=== PATIENT | male | born 1985 | race Caucasian/White ===

== ENCOUNTER 2018-08-10 11:31 | Emergency (ER) | payer OTHER ==
[2018-08-10] MEDS ORDERED: SODIUM CHLORIDE 0.9% 500 ML IV ONE (11:40)
[2018-08-10] MEDS ORDERED: ONDANSETRON HCL IV 4 MG/2 ML VIAL IV ONE (11:40)
--- NOTE | 2018-08-10 11:46 | Emergency Department Record ---
History of Present Illness - General Chief complaint: Flank Pain Stated complaint: FLANK PAIN Time Seen by Provider: 08/10/18 11:37 Source: Patient Mode of Arrival: Ambulatory Limitations: No limitations - History of Present Illness Initial comments: The patient is here due to a 1 day hx of the acute onset of L flank pain. The pain is sharp and stabbing and does radiate mildly to the L groin and hip area. He has had some nausea and vomiting with the pain. The patient does feel pressure when he has to urinate at times. There has been no hx of similar problems and no hx of kidney stones. The patient is sometimes worse with movement and bending. There is no pain radiating to the legs and no leg numbness or weakness. MD Complaint: Other Onset/Timin -: Days(s) Location: Left flank Severity: Mild Severity scale (1-10): 6 Quality: Sharp Consistency: Constant Improves with: None Worsens with: Urination Reports: Nausea/vomiting - Related Data Sexually active: Yes Previous Rx's Medication Instructions Recorded Naproxen [Naprosyn] 500 mg PO BID #14 tablet. 08/10/18 Allergies Allergy/AdvReac Type Severity Reaction Status Date / Time No Known Drug Allergies Allergy Verified 08/10/18 11:38 Travel Screening - Travel/Exposure Within Last 30 Days Have you traveled within the last 30 days?: No Review of Systems Constitutional: Denies: Chills, Fever Eyes: Denies: Eye discharge ENT: Denies: Congestion Respiratory: Denies: Cough, Dyspnea Past Medical History - SOCIAL HISTORY Smoking Status: Never smoker Alcohol Use: Occasional Drug Use: None - RESPIRATORY Hx Respiratory Disorders: No - CARDIOVASCULAR Hx Cardio Disorders: No - NEURO Hx Neuro Disorders: No - GI Hx GI Disorders: No - Hx Genitourinary Disorders: No - ENDOCRINE Hx Endocrine Disorders: No - MUSCULOSKELETAL Hx Musculoskeletal Disorders: No - PSYCH Hx Psych Problems: No Family Medical History Any Significant Family History?: No Physical Exam - General General Appearance: Alert, Oriented x3, Cooperative, No acute distress - Head Head exam: Atraumatic, Normocephalic, Normal inspection - Eye Eye exam: Normal appearance, PERRL - Neck Neck exam: Normal inspection, Full ROM. negative: Tenderness - Respiratory Respiratory exam: Normal lung sounds bilaterally. negative: Respiratory distress - Cardiovascular Cardiovascular Exam: Regular rate, Normal rhythm, Normal heart sounds - GI/Abdominal GI/Abdominal exam: Soft, Normal bowel sounds, Tenderness (There is mild LLQ tenderness to palpation.). negative: Guarding, Rebound, Rigid - Extremities Extremities exam: Normal inspection, Full ROM, Normal capillary refill. negative: Tenderness - Back Back exam: Reports: Normal inspection, Paraspinal tenderness (There is tenderness to the L L3-5 paraspinal area which does reproduce the patient's pain.). Denies: CVA tenderness (R), CVA tenderness (L), Vertebral tenderness - Neurological Neurological exam: Alert. negative: Motor sensory deficit Course Vital Signs 08/10/18 11:33 Temperature 98.7 F Pulse Rate 91 H Respiratory 16 Rate Blood Pressure 139/96 Pulse Ox 99 - Reevaluation(s) Reevaluation #1: The patient is doing well at this time. I did discuss the lab results and the CT results with the need for a chest CT in 12 months ordered by his PCP. He is to take Naprosyn for pain and to see his PCP for recheck next week. 08/10/18 12:37 Medical Decision Making - Data Complexity MDM Data: Labs Ordered and/or Reviewed, X-Ray Ordered and/or Reviewed - Lab Data Result diagrams: 08/10/18 11:50 08/10/18 11:50 - Radiology Data Radiology results: Report reviewed (CT: Neg ureter stone or hydro. 1 mm punctate stone in L kidney. 4 lower lobe 4mm pulm nodules. Need 12 month F/U.) Disposition Disposition: Discharge Clinical Impression: Flank pain, acute Disposition: Home, Self-Care Condition: (2) Stable Instructions: Flank Pain (ED) Additional Instructions: Please take Naprosyn for pain and take today off work. Please see your family doctor next week and please bring an official CT report for further evaluation. Please talk to your family doctor about getting a chest CT in 12 months. Return to the ER for any worsening symptoms or pain or any fever. Prescriptions: Naproxen [Naprosyn] 500 mg PO BID #14 tablet.dr Forms: Patient Portal Access Time of Disposition: 12:39 Quality - Quality Measures Quality Measures: N/A - Blood Pressure Screening View Details: Yes Does Patient Have Any of the Following: No Blood Pressure Classification: Hypertensive Reading Systolic Measurement: 139 Diastolic Measurement: 96 Screening for High Blood Pressure: < First Hypertensive BP, F/U Documented > [ G8950] First Hypertensive Follow-up Interventions: Referral to alternative/primary care provider.
[2018-08-10 11:47] LABS: URINE APPEARANCE CLEAR; URINE BILIRUBIN NEGATIVE (NEGATIVE); URINE BLOOD NEGATIVE (NEGATIVE); URINE COLOR YELLOW; URINE GLUCOSE (UA) NEGATIVE (NEGATIVE); URINE KETONE NEGATIVE (NEGATIVE); URINE LEUKOCYTE ESTERASE NEGATIVE (NEGATIVE); URINE NITRITE NEGATIVE (NEGATIVE); URINE PROTEIN NEGATIVE (NEGATIVE)
[2018-08-10 11:56] LABS: BASO % 0.6 % (0-6); EOS % 1.4 % (0-6); HEMATOCRIT 45.5 % (42.0-52.0); HEMOGLOBIN 16.4 gm/dl (14.0-18.0); LYMPH % 39.8 % (16-45); MEAN CELL VOLUME 86.5 fl (81-97); MEAN CORPUSCULAR HEMOGLOBIN 31.2 pg (27-33); MEAN PLATELET VOLUME 8.7 fl (7.4-10.4); MONO % 13.2 % (0-9); PLATELET COUNT 253 K/uL (130-400); RED BLOOD COUNT 5.26 M/uL (4.40-5.70); WHITE BLOOD COUNT W/O DIFF 3.6 K/uL (4.2-12.2)
[2018-08-10 12:07] LABS: BLOOD UREA NITROGEN 10 mg/dL (6-20); CREATININE 1.2 mg/dL (0.7-1.2); EST GLOMERULAR FILTRATION RATE > 60 mL/min
[2018-08-10 12:10] LABS: GLUCOSE,RANDOM 106 mg/dL (74-109)
[2018-08-10] MEDS ORDERED: KETOROLAC 30 MG/ML VIAL IVP ONE (12:14)
--- NOTE | 2018-08-12 08:22 | CT SCAN REPORT ---
EXAM: CT SCAN ABDOMEN/PELVIS WO CONTRAST HISTORY: LEFT FLANK PAIN FOR ONE DAY. TECHNIQUE: Noncontrast CT of the abdomen and pelvis. COMPARISON: None. FINDINGS: Noncalcified 4 mm nodule in the right lower lobe (series 3, image 23) . Noncalcified 4 mm nodule in the left lower lobe (series 3, image 9). Unremarkable noncontrast appearance of the liver, gallbladder, spleen, adrenal glands, and pancreas. Punctate 1 mm calculus in the left lower renal pole. No hydronephrosis. No calculi detected in the ureters or urinary bladder. Urinary bladder is only minimally distended, gaming appearing diffusely thickened. Linear densities in the right lower quadrant near the cecum suggests prior surgery. Appendix is not clearly seen. Stomach and small bowel appear nondilated. No focal colonic thickening or inflammatory changes. No free air or free fluid in the abdomen or pelvis. No lymphadenopathy detected. Aorta appears nondilated. No acute osseous abnormalities detected. IMPRESSION: 1. NONOBSTRUCTIVE PUNCTATE LEFT INTRARENAL CALCULUS. NO EVIDENCE OF OBSTRUCTIVE UROPATHY. 2. URINARY BLADDER WALL APPEARS DIFFUSELY THICKENED, POSSIBLY ARTIFACTUAL RELATED TO UNDERDISTENTION ALTHOUGH CORRELATION WITH URINALYSIS IS SUGGESTED. 3. NONCALCIFIED BILATERAL LOWER LOBE PULMONARY NODULES MEASURING UP TO 4 MM. PER [employer] GUIDELINES, FOLLOW-UP CT IN 12 MONTHS IS RECOMMENDED TO ASSESS FOR STABILITY. JOB NUMBER: [id number] MTDD
== END 2018-08-10 12:57 | disposition home or self-care (01) ==
LOC: ER 11:31
DX: N20.0 Calculus of kidney (principal); R10.32 Left lower quadrant pain; M54.5 Low back pain; R11.2 Nausea with vomiting, unspecified
CPT/HCPCS: 99284 ×2; 96374; 96361; 85025; 80048; 81003; 74176; J1885

== ENCOUNTER 2018-09-26 09:24 | Emergency (ER) | payer OTHER ==
--- NOTE | 2018-09-26 09:41 | Emergency Department Record ---
History of Present Illness - General Chief Complaint: Cough Stated Complaint: COUGHING UP BLOOD Time Seen by Provider: 09/26/18 09:31 Mode of Arrival: Ambulatory - History of Present Illness Initial Comments: patient vomited times two and coughed up blood. Stingy mucous with stands of blood. Patient seen 2 months ago and he was getting a CT scan for kidney pain and some spots on the lng were seen and he has a follow up appointment in [facility] to follow up on spots on his lung . This follow up is with his primary in [facility] but he doesn't remember their name. was concerned and she wanted him to come in to get checked. Currently he doesn't feel bad and no fever today. patient chews tobacco and I advised him to stop chewing for his health. MD Complaint: Cough Onset/Timin -: Days(s) Associated Symptoms: Vomiting - Related Data Previous Rx's Medication Instructions Recorded Naproxen [Naprosyn] 500 mg PO BID #14 tablet. 08/10/18 Allergies Allergy/AdvReac Type Severity Reaction Status Date / Time No Known Drug Allergies Allergy Verified 09/26/18 09:29 Travel Screening - Travel/Exposure Within Last 30 Days Have you traveled within the last 30 days?: No Review of Systems Reviewed: No additional complaints except as noted below Constitutional: Reports: As per HPI. Denies: Chills, Fever, Malaise, Night sweats, Weakness, Weight change Eyes: Reports: As per HPI. Denies: Eye discharge, Eye pain, Photophobia, Vision change ENT: Reports: As per HPI, Congestion. Denies: Dental pain, Ear pain, Epistaxis , Hearing loss, Throat pain Respiratory: Reports: As per HPI, Cough. Denies: Dyspnea, Hemoptysis, Stridor, Wheezes Cardiovascular: Reports: As per HPI. Denies: Arrhythmia, Chest pain, Dyspnea on exertion, Edema, Murmurs, Orthopnea, Palpitations, Paroxysmal nocturnal dyspnea, Rheumatic Fever, Syncope Endocrine: Reports: As per HPI. Denies: Fatigue, Heat or cold intolerance, Polydipsia, Polyuria Gastrointestinal: Reports: As per HPI, Vomiting. Denies: Abdominal pain, Constipation, Diarrhea, Hematemesis, Hematochezia, Melena, Nausea Genitourinary: Reports: As per HPI. Denies: Dysuria, Frequency, Hematuria, Incontinence, Retention, Testicular pain, Testicular mass, Urgency Musculoskeletal: Reports: As per HPI. Denies: Arthralgia, Back pain, Gout, Joint swelling, Myalgia, Neck pain Skin: Reports: As per HPI. Denies: Bruising, Change in color, Change in hair/ nails, Lesions, Pruritus, Rash Neurological: Reports: As per HPI. Denies: Abnormal gait, Confusion, Headache, Numbness, Paresthesias, Seizure, Tingling, Tremors, Vertigo, Weakness Psychiatric: Reports: As per HPI. Denies: Anxiety, Auditory hallucinations, Depression, Homicidal thoughts, Suicidal thoughts, Visual hallucinations Hematological/Lymphatic: Reports: As per HPI. Denies: Anemia, Blood Clots, Easy bleeding, Easy bruising, Swollen glands Past Medical History - SOCIAL HISTORY Smoking Status: Never smoker Alcohol Use: None Drug Use: None - RESPIRATORY Hx Respiratory Disorders: No - CARDIOVASCULAR Hx Cardio Disorders: No - NEURO Hx Neuro Disorders: No - GI Hx GI Disorders: No - Hx Genitourinary Disorders: Yes Hx Kidney Stones: Yes - ENDOCRINE Hx Endocrine Disorders: No - MUSCULOSKELETAL Hx Musculoskeletal Disorders: No - PSYCH Hx Psych Problems: No - HEMATOLOGY/ONCOLOGY Hx Hematology/Oncology Disorders: No Family Medical History Any Significant Family History?: No Physical Exam - General General Appearance: Alert, Oriented x3, Cooperative, No acute distress - Head Head exam: Normal inspection - Eye Eye exam: Normal appearance, PERRL Pupils: Normal accommodation - ENT ENT exam: Normal exam, Mucous membranes moist, Normal external ear exam, Normal orophraynx, TM's normal bilaterally Ear exam: Normal external inspection. negative: External canal tenderness Nasal Exam: Normal inspection. negative: Discharge, Sinus tenderness Mouth exam: Normal external inspection, Tongue normal Teeth exam: Normal inspection. negative: Dental caries Throat exam: Normal inspection. negative: Tonsillar erythema, Tonsillar exudate - Neck Neck exam: Normal inspection, Full ROM. negative: Tenderness - Respiratory Respiratory exam: Normal lung sounds bilaterally. negative: Respiratory distress - Cardiovascular Cardiovascular Exam: Regular rate, Normal rhythm, Normal heart sounds - GI/Abdominal GI/Abdominal exam: Soft, Normal bowel sounds. negative: Tenderness - Rectal Rectal exam: Deferred - exam: Deferred - Extremities Extremities exam: Normal inspection, Full ROM, Normal capillary refill. negative: Tenderness - Back Back exam: Reports: Normal inspection, Full ROM. Denies: Muscle spasm, Rash noted, Tenderness - Neurological Neurological exam: Alert, Normal gait, Oriented X3, Reflexes normal - Psychiatric Psychiatric exam: Normal affect, Normal mood - Skin Skin exam: Dry, Intact, Normal color, Warm Course Vital Signs 09/26/18 09:26 Temperature 98.0 F Pulse Rate 69 Respiratory 16 Rate Blood Pressure 124/86 Pulse Ox 97 Medical Decision Making - Data Complexity MDM Data: Labs Ordered and/or Reviewed, X-Ray Ordered and/or Reviewed (chest xray negative for infiltrates) - Lab Data Result diagrams: 09/26/18 09:50 09/26/18 09:50 Disposition Clinical Impression: Bronchitis, Hemoptysis Disposition: Home, Self-Care Condition: (1) Good Instructions: Acute Bronchitis (ED), Cold Symptoms (ED) Additional Instructions: follow up with family in 5 days if not improving robitussin dm 10 ml every 4 hours Forms: Patient Portal Access Time of Disposition: 10:05 Quality - Quality Measures Quality Measures: N/A - Blood Pressure Screening Does Patient Have Any of the Following: No Blood Pressure Classification: Pre-Hypertensive BP Reading Systolic Measurement: 124 Diastolic Measurement: 86 Screening for High Blood Pressure: < Pre-Hypertensive BP, F/U Documented > [ G8950] Pre-Hypertensive Follow-up Interventions: Referral to alternative/primary care provider.
[2018-09-26 10:01] LABS: BASO % 0.8 % (0-6); EOS % 1.9 % (0-6); GRAN % 38.8 % (47-80); HEMATOCRIT 44.1 % (42.0-52.0); HEMOGLOBIN 15.4 gm/dl (14.0-18.0); LYMPH % 48.8 % (16-45); MEAN CELL VOLUME 89.5 fl (81-97); MEAN CORPUSCULAR HEMOGLOBIN 31.2 pg (27-33); MEAN CORPUSCULAR HGB CONC 34.9 g/dl (32-36); MEAN PLATELET VOLUME 8.9 fl (7.4-10.4); MONO % 9.7 % (0-9); PLATELET COUNT 231 K/uL (130-400); RED BLOOD COUNT 4.93 M/uL (4.40-5.70); RED CELL DISTRIBUTION WIDTH 12.3 % (11.5-14.5); WHITE BLOOD COUNT W/O DIFF 2.6 K/uL (4.2-12.2)
[2018-09-26 12:15] LABS: BLOOD UREA NITROGEN 11 mg/dL (6-20); CREATININE 1.1 mg/dL (0.7-1.2); EST GLOMERULAR FILTRATION RATE > 60 mL/min
[2018-09-26 12:18] LABS: GLUCOSE,RANDOM 95 mg/dL (74-109)
--- NOTE | 2018-09-27 13:31 | RADIOLOGY REPORT ---
EXAM: CHEST, TWO VIEWS HISTORY: COUGH FOR ONE MONTH. TECHNIQUE: Two views of the chest were obtained. Comparison: None. FINDINGS: The cardiac silhouette is within normal size limits. The pulmonary vasculature is nondilated. No focal consolidation, pleural effusion, or pneumothorax is present. IMPRESSION: NO ACUTE LUNG FINDINGS. JOB NUMBER: [id number] MTDD
== END 2018-09-26 10:30 | disposition home or self-care (01) ==
LOC: ER 09:24
DX: J02.9 Acute pharyngitis, unspecified (principal); R04.2 Hemoptysis
CPT/HCPCS: 71046; 80048; 85025; 99283; 99284